=== PATIENT | male | born 1965 | race Hispanic/Latino ===

== ENCOUNTER 2018-03-25 09:27 | Emergency (ER) | payer MEDICARE, OTHER ==
[~2018-03-25] VITALS: Ht 165.1 cm; Wt 79.0 kg
[~2018-03-25 09:27] MED LIST: DILANTIN100 MG PO; NEURONTIN400 MG PO; SYNTHROID175 MCG PO; TEGRETOL200 MG PO; THIORIDAZINE OR; VISTARIL50 MG PO
[2018-03-25] MEDS ORDERED: TRAZODONE50 MG PO (09:40)
[2018-03-25] MEDS ORDERED: KEPPRA XR500 MG PO (09:40)
[2018-03-25 10:13] LABS: HEMATOCRIT 35.2 % (39.0-50.0); HEMOGLOBIN 11.4 g/dl (14.0-18.0); IMMATURE GRANULOCYTES 0.4 % (0.0-5.0); MEAN CORPUSCULAR HGB 26.9 pG CALC (26.0-32.0); MEAN CORPUSCULAR HGB CONC 32.4 g/L CALC (32.0-36.0); NEUT# 3.84 thou/uL (1.82-7.42); RED BLOOD COUNT 4.24 mill/uL (4.70-6.10); RED CELL DISTRI WIDTH 11.9 % (11.5-15.5)
[2018-03-25 10:33] LABS: ALBUMIN 4.2 g/dL (3.2-5.0); ALKALINE PHOSPHATASE 87 u/l (38-126); ANION GAP 15 (6-22 (CALC)); BILIRUBIN, TOTAL 0.3 mg/dL (0.0-1.4); BUN 18 mg/dL (9-20); BUN/CREATININE RATIO 20 (12-20 (CALC)); CARBON DIOXIDE 27 mmol/l (22-30); CHLORIDE 104 mmol/l (95-108); CREATININE 0.9 mg/dL (0.7-1.3); GFR > 60 ML/MIN (>=60 (CALC)); GFR FOR AFR.AMER. > 60 ML/MIN (>=60 (CALC)); POTASSIUM 3.9 mmol/l (3.5-5.1); SGOT/AST 27 u/l (17-59); SGPT/ALT 24 u/l (21-72); SODIUM 142 mmol/l (137-146); TOTAL PROTEIN 7.8 g/dL (6.3-8.2)
[2018-03-25 10:45] LABS: MYOGLOBIN 28 ng/mL (0 - 121)
[2018-03-25 11:25] LABS: URINE BILIRUBIN - DIPSTICK NEGATIVE (NEGATIVE); URINE BLOOD DIPSTICK NEGATIVE (NEGATIVE); URINE CLARITY CLEAR; URINE COLOR YELLOW; URINE GLUCOSE - DIPSTICK NEGATIVE (NEGATIVE); URINE KETONE NEGATIVE (NEGATIVE); URINE LEUK ESTERASE NEGATIVE (NEGATIVE); URINE NITRITE - DIPSTICK NEGATIVE (Negative); URINE PROTEIN - DIPSTICK NEGATIVE (NEG-TRACE); URINE SPECIFIC GRAVITY 1.015; URINE UROBILINOGEN - DIPSTICK 0.2 E.U./dL (0.2)
[2018-03-25 11:52] LABS: INFLUENZA A NONE DETECTED (NONE DETECT); INFLUENZA B NONE DETECTED (NONE DETECT)
[2018-03-25 14:43] VITALS: BP 141/72
== END 2018-03-25 14:55 | disposition home or self-care (01) ==
LOC: ED 09:27
PROVIDERS: Emergency Medicine
DX: R07.89 Other chest pain (principal); F79 Unspecified intellectual disabilities; R00.0 Tachycardia, unspecified

== ENCOUNTER 2018-11-10 10:25 | Emergency (ER) | payer MEDICARE, OTHER ==
[~2018-11-10] VITALS: Ht 165.1 cm; Wt 79.5 kg
[~2018-11-10 10:25] MED LIST changes: +KEPPRA XR500 MG PO; +TRAZODONE50 MG PO
[2018-11-10] MEDS ORDERED: TEGRETOL200 MG PO (10:40)
[2018-11-10] MEDS ORDERED: VITAMIN D32000 UNI2 PO (10:43)
[2018-11-10 10:51] LABS: HEMATOCRIT 34.5 % (39.0-50.0); HEMOGLOBIN 11.3 g/dl (14.0-18.0); IMMATURE GRANULOCYTES 0.9 % (0.0-5.0); MEAN CELL VOLUME 82.3 fL CALC (80.0-100.0); MEAN CORPUSCULAR HGB CONC 32.8 g/L CALC (32.0-36.0); NEUT# 19.39 thou/uL (1.82-7.42); RED BLOOD COUNT 4.19 mill/uL (4.70-6.10); RED CELL DISTRI WIDTH 12.1 % (11.5-15.5)
[2018-11-10 11:00] LABS: ALBUMIN 4.5 g/dL (3.2-5.0); ALKALINE PHOSPHATASE 93 u/l (38-126); ANION GAP 16 (6-22 (CALC)); BILIRUBIN, TOTAL 0.6 mg/dL (0.0-1.4); BUN 18 mg/dL (9-20); BUN/CREATININE RATIO 19 (12-20 (CALC)); CARBON DIOXIDE 23 mmol/l (22-30); CHLORIDE 101 mmol/l (95-108); CREATININE 0.9 mg/dL (0.7-1.3); GFR > 60 ML/MIN (>=60 (CALC)); GFR FOR AFR.AMER. > 60 ML/MIN (>=60 (CALC)); POTASSIUM 3.8 mmol/l (3.5-5.1); SGOT/AST 22 u/l (17-59); SODIUM 135 mmol/l (137-146); TOTAL PROTEIN 8.1 g/dL (6.3-8.2)
[2018-11-10 12:15] LABS: URINE BILIRUBIN - DIPSTICK NEGATIVE (NEGATIVE); URINE BLOOD DIPSTICK SMALL (NEGATIVE); URINE COLOR YELLOW; URINE GLUCOSE - DIPSTICK NEGATIVE (NEGATIVE); URINE KETONE TRACE mg/dL (NEGATIVE); URINE NITRITE - DIPSTICK NEGATIVE (Negative); URINE PROTEIN - DIPSTICK TRACE mg/dL (NEG-TRACE); URINE SPECIFIC GRAVITY 1.025; URINE UROBILINOGEN - DIPSTICK 0.2 E.U./dL (0.2)
[2018-11-10 12:16] LABS: URINE LEUK ESTERASE SMALL (NEGATIVE)
[2018-11-10 12:33] LABS: URINE RBC 25-50 RBC/hpf (0-5)
[2018-11-10 12:34] LABS: URINE BACTERIA FEW hpf; URINE SQUAMOUS EPITHELIAL CELL FEW EPI/hpf (0-FEW); URINE WBC 20-50 WBC/hpf (0-5)
[2018-11-10] MEDS ORDERED: KEFLEX500 M1 PO (12:36)
[2018-11-10 12:38] VITALS: BP 139/77
== END 2018-11-10 12:40 | disposition home or self-care (01) ==
LOC: ED 10:25
PROVIDERS: Emergency Medicine
DX: R41.82 Altered mental status, unspecified (principal); R56.9 Unspecified convulsions

== ENCOUNTER 2019-12-29 16:52 | Emergency (ER) | payer MEDICARE, OTHER ==
[~2019-12-29] VITALS: Ht 165.1 cm; Wt 70.0 kg
[~2019-12-29 16:52] MED LIST changes: +KEFLEX500 M1 PO; +VITAMIN D32000 UNI2 PO
[2019-12-29 17:47] LABS: HEMATOCRIT 33.8 % (39.0-50.0); HEMOGLOBIN 11.1 g/dl (14.0-18.0); IMMATURE GRANULOCYTES 0.1 % (0.0-5.0); MEAN CELL VOLUME 80.1 fL CALC (80.0-100.0); MEAN CORPUSCULAR HGB 26.3 pG CALC (26.0-32.0); MEAN CORPUSCULAR HGB CONC 32.8 g/dL CAL (32.0-36.0); NEUT# 5.33 thou/uL (1.82-7.42); RED BLOOD COUNT 4.22 mill/uL (4.70-6.10)
[2019-12-29 18:17] LABS: URINE BILIRUBIN - DIPSTICK NEGATIVE (NEGATIVE); URINE BLOOD DIPSTICK NEGATIVE (NEGATIVE); URINE COLOR YELLOW; URINE GLUCOSE - DIPSTICK NEGATIVE (NEGATIVE); URINE KETONE TRACE mg/dL (NEGATIVE); URINE LEUK ESTERASE NEGATIVE (NEGATIVE); URINE NITRITE - DIPSTICK NEGATIVE (Negative); URINE PROTEIN - DIPSTICK NEGATIVE (NEG-TRACE); URINE SPECIFIC GRAVITY 1.025; URINE UROBILINOGEN - DIPSTICK 0.2 E.U./dL (0.2)
[2019-12-29] MEDS ORDERED: CARBAMAZEPIN200 MG PO ×2 (18:36→18:49)
[2019-12-29 18:39] LABS: ALBUMIN 4.4 g/dL (3.2-5.0); ALKALINE PHOSPHATASE 90 u/l (38-126); ANION GAP 13 (6-22 (CALC)); BILIRUBIN, TOTAL 0.5 mg/dL (0.0-1.4); BUN 21 mg/dL (9-20); BUN/CREATININE RATIO 27 (12-20 (CALC)); CARBON DIOXIDE 25 mmol/l (22-30); CHLORIDE 101 mmol/l (95-108); CREATININE 0.8 mg/dL (0.7-1.3); GFR > 60 ML/MIN (>=60 (CALC)); GFR FOR AFR.AMER. > 60 ML/MIN (>=60 (CALC)); SODIUM 136 mmol/l (137-146); TOTAL PROTEIN 7.8 g/dL (6.3-8.2)
[2019-12-29 18:40] LABS: SGOT/AST 48 u/l (17-59)
[2019-12-29 18:45] LABS: C-REACTIVE PROTEIN 6.4 mg/dL (0-0.9)
[2019-12-29] MEDS ORDERED: DITROPAN5 MG/TA1 PO (18:52)
[2019-12-29] MEDS ORDERED: TAMSULOSIN HCL0.4 MG PO (18:52)
[2019-12-29 18:56] LABS: MYOGLOBIN 202 ng/mL (0 - 121)
[2019-12-29 21:30] VITALS: BP 151/91
== END 2019-12-29 21:30 | disposition home or self-care (01) ==
LOC: ED 16:52
PROVIDERS: Emergency Medicine
DX: U07.1 COVID-19 (principal); I10 Essential (primary) hypertension; F79 Unspecified intellectual disabilities
CPT/HCPCS: Q9967

== ENCOUNTER 2019-12-31 09:19 | Inpatient (IN) | payer MEDICARE, OTHER ==
[~2019-12-31] VITALS: Ht 175.3 cm; Wt 81.6 kg
[2019-12-31] VITALS (7 sets, daily range): BP systolic 99–136; BP diastolic 54–77
[~2019-12-31 09:19] MED LIST changes: +CARBAMAZEPIN200 MG PO; +DITROPAN5 MG/TA1 PO; +TAMSULOSIN HCL0.4 MG PO
--- NOTE | 2019-12-31 09:24 | NUR ---
PT TO ROOM VIA WC
--- NOTE | 2019-12-31 10:24 | NUR ---
PT IS RESTING COMFORTABLY. NO DISTRESS NOTED
[2019-12-31 10:58] LABS: HEMATOCRIT 31.4 % (39.0-50.0); HEMOGLOBIN 9.9 g/dl (14.0-18.0); IMMATURE GRANULOCYTES 0.4 % (0.0-5.0); MEAN CELL VOLUME 82.2 fL CALC (80.0-100.0); MEAN CORPUSCULAR HGB 25.9 pG CALC (26.0-32.0); MEAN CORPUSCULAR HGB CONC 31.5 g/dL CAL (32.0-36.0); NEUT# 3.67 thou/uL (1.82-7.42); RED BLOOD COUNT 3.82 mill/uL (4.70-6.10); RED CELL DISTRI WIDTH 12.4 % (11.5-15.5)
[2019-12-31 11:11] LABS: ALBUMIN 3.9 g/dL (3.2-5.0); ALKALINE PHOSPHATASE 86 u/l (38-126); ANION GAP 11 (6-22 (CALC)); BILIRUBIN, TOTAL 0.3 mg/dL (0.0-1.4); BUN 14 mg/dL (9-20); BUN/CREATININE RATIO 18 (12-20 (CALC)); CARBON DIOXIDE 29 mmol/l (22-30); CHLORIDE 103 mmol/l (95-108); CREATININE 0.8 mg/dL (0.7-1.3); GFR > 60 ML/MIN (>=60 (CALC)); GFR FOR AFR.AMER. > 60 ML/MIN (>=60 (CALC)); POTASSIUM 3.4 mmol/l (3.5-5.1); SGOT/AST 53 u/l (17-59); SODIUM 139 mmol/l (137-146); TOTAL PROTEIN 7.3 g/dL (6.3-8.2)
[2019-12-31 11:23] LABS: MYOGLOBIN 68 ng/mL (0 - 121)
--- NOTE | 2019-12-31 11:24 | NUR ---
PT IS RESTING ON STRETCHER
--- NOTE | 2019-12-31 12:16 | NUR ---
PT IS RESTING ON STRTCHER NO DISTRESS NOTED
--- NOTE | 2019-12-31 13:08 | NUR ---
patient is resting on the stretcher. no distress noted -
--- NOTE | 2019-12-31 14:08 | NUR ---
PATIENT AND SISTER ARE AWARE OF ADMISSION. AWAITING BED ASSIGNMENT. NO DISTRESS NOTED.
--- NOTE | 2019-12-31 14:49 | NUR ---
PATIENT IS RESTIN COMFORTABLY
--- NOTE | 2019-12-31 15:32 | NUR ---
Admission Note Report Given to: JOHN OBREGON Transported by: Wheelchair X Stretcher Transported with: X Nurse Transporter X Patent IV X O2 X Curator Of Collections Location: X ICU MS2
--- NOTE | 2019-12-31 16:29 | NUR ---
PT ARRIVES TO ROOM 8 IN ICU, SEEN AWAKE, ALERT, ORIENTED TO SELF ONLY PER MENTAL CHALLENGE. LUNGS ARE DIMINISHED, CRACKLES TO BASES, USES 3 LPM NC. PT COOPERATIVE WITH ASSESSMENT, ATTEMPTS TO COMMUNICATE. SISTER NATALIYA WAS ALLOWED IN ROOM FOR SHORT TIME, HELPED WITH INITIAL ASSESSMENT INFORMATION.
--- NOTE | 2019-12-31 19:00 | NUR ---
RECEIVED REPORT FROM AM NURSE. PATIENT RESTING IN BED. PATIENT DOES NOT APPEAR TO BE IN ANY DISTRESS. VITALS STABLE. WILL CONTINUE TO MONITOR.
--- NOTE | 2019-12-31 20:00 | NUR ---
ASSESSMENT COMPLETED. PATIENT AMBULATED TO BATHROOM. PATIENT ONLY ALERT TO SELF. PATIENT HELPED BACK TO BED. PATIENT WITH NO COMPLAINTS OF PAIN OR DISCOMFORT. VITALS STABLE. PATIENT WITH NO SIGNS OF PAIN OR DISCOMFORT. WILL CONTINUE TO MONITOR.
--- NOTE | 2019-12-31 22:00 | NUR ---
PATIENT GIVEN PM MED. PATIENT WITH NO QUESTIONS. PATIENT RESTING IN BED. PATIENT WITH NO COMPLAINTS. VITAL STABLE. WILL CONTINUE TO MONITOR.
[2020-01-01] VITALS (17 sets, daily range): BP systolic 98–146; BP diastolic 56–85
--- NOTE | 2020-01-01 | NUR ---
PATIENT AWAKE. PATIENT WAS OFFERED ASSISTANCE TO BATHROOM, PATIENT DENIES NEED FOR BATHROOM. PATIENT WITH NO COMPLAINTS. VITALS STABLE. WILL CONTINUE TO MONITOR.
--- NOTE | 2020-01-01 02:41 | NUR ---
PATIENT SLEEPING. PATIENT WITH NO SIGNS OF PAIN OR DISCOMFORT. WILL CONTINUE TO MONITOR
--- NOTE | 2020-01-01 04:00 | NUR ---
PATIENT RESTING IN BED. PATIENT WITH NO COMPLAINTS. VITALS STABLE.
--- NOTE | 2020-01-01 06:00 | NUR ---
PATIENT AMBULATED TO BATHROOM. PATIENT WITH NO COMPLAINTS. VITALS STABLE. WILL CONTINUE TO MONITOR PATIENT.
--- NOTE | 2020-01-01 07:40 | NUR ---
pt resting in bed with eyes closed; easily arousable; no verbal with this brief writer; ATT Lang Line Be used; ID [id number]; assessment completed at this time; pt alert to person; speech unintelligible/ hestitant with shore working supervisor; plan of care/ meds/ lab draw explained; resp even and unlabored; lungs clear/ rhonchi bases; skin color wnl; o2 per nc; resource agent cough noted; hr reg; strong pulses; no edema noted; sr on monitor; bilat knee high awa hose intact; abd soft with bs present; no bm noted per brief writer; no urine to inspect at this time; #20 to rac/ #20 to lac flushed and patent; no redness or edema noted at sites; am labs obtained; call light within reach; will continue to monitor
--- NOTE | 2020-01-01 08:02 | NUR ---
06/29 BOTTLES BLOOD CX SHOW GRAM POSITIVE COCCI. GIVE 1X DOSE OF VANCOMYCIN PER DR FOSTER
--- NOTE | 2020-01-01 08:09 | NUR ---
awake in bed eating breakfast; no apparent distress noted; pt offers no complaints; sr on monitor; iv's intact; call light within reach; will continue to monitor
[2020-01-01 08:16] LABS: HEMATOCRIT 32.7 % (39.0-50.0); HEMOGLOBIN 10.4 g/dl (14.0-18.0); IMMATURE GRANULOCYTES 0.3 % (0.0-5.0); MEAN CELL VOLUME 82.2 fL CALC (80.0-100.0); MEAN CORPUSCULAR HGB 26.1 pG CALC (26.0-32.0); MEAN CORPUSCULAR HGB CONC 31.8 g/dL CAL (32.0-36.0); NEUT# 4.81 thou/uL (1.82-7.42); RED BLOOD COUNT 3.98 mill/uL (4.70-6.10); RED CELL DISTRI WIDTH 12.3 % (11.5-15.5)
[2020-01-01 09:13] LABS: ALBUMIN 3.6 g/dL (3.2-5.0); ALKALINE PHOSPHATASE 96 u/l (38-126); ANION GAP 10 (6-22 (CALC)); BILIRUBIN, TOTAL 0.3 mg/dL (0.0-1.4); BUN 16 mg/dL (9-20); BUN/CREATININE RATIO 23 (12-20 (CALC)); CARBON DIOXIDE 27 mmol/l (22-30); CHLORIDE 105 mmol/l (95-108); CREATININE 0.7 mg/dL (0.7-1.3); GFR > 60 ML/MIN (>=60 (CALC)); GFR FOR AFR.AMER. > 60 ML/MIN (>=60 (CALC)); POTASSIUM 3.6 mmol/l (3.5-5.1); SGOT/AST 52 u/l (17-59); SODIUM 138 mmol/l (137-146); TOTAL PROTEIN 6.6 g/dL (6.3-8.2)
[2020-01-01 09:24] LABS: C-REACTIVE PROTEIN 24.9 mg/dL (0-0.9)
--- NOTE | 2020-01-01 09:25 | NUR ---
Dr Matthew present at bedside to assess pt
--- NOTE | 2020-01-01 10:05 | NUR ---
pt awake in bed watching tv; no apparent distress noted; iv intact and patent; abt infusing without complication; sr on monitor; call light within reach; will continue to monitor
--- NOTE | 2020-01-01 10:54 | NUR ---
personal caregiver Sherita Nice called this appeals writer; update provided; Sherita informed of non folrmulary medication that needs to brought in
--- NOTE | 2020-01-01 12:00 | NUR ---
awake in bed; assist to sit on side of bed for lunch; no apparent distress noted; speech garbled/ incomprehensible; iv intact and patent; o2 per nc; sr on monitor; call light within reach; will continue to monitor
--- NOTE | 2020-01-01 13:32 | NUR ---
home medication received; pharmacy notified
--- NOTE | 2020-01-01 14:03 | NUR ---
awake in bed; no apparent distress noted; o2 per nc; iv intact; sr on monitor; call light within reach; will continue to monitor
--- NOTE | 2020-01-01 14:32 | NUR ---
pt awake in bed; points at arm; monitoring attachments explained; iv flushed and patent; sr on monitor; mortgage or loan underwriter/staff unable to articulate speech; speech garbled; family Sherita called per mortgage or loan underwriter; information provided; pt continues to remove o2 nc; reapplied; o2 sat 84%; o2 titrated to 4L with current of sat of 88-90%; plan of care explained to pt per family; will continue to monitor
--- NOTE | 2020-01-01 15:55 | NUR ---
RT at bedside; pt converted to 6L high kassandra NC; o2 sat 92%; will continue to monitor closely
--- NOTE | 2020-01-01 16:06 | NUR ---
pt resting in bed with eyes closed; no apparent distress noted; ivs intact; sr on monitor; o2 per nc; call light within reach; will continue to monitor
--- NOTE | 2020-01-01 17:53 | NUR ---
awake in bed eating dinner; no apparent distress noted; sr on monitor; iv intact; o2 per nc; call light within reach;
--- NOTE | 2020-01-01 20:00 | NUR ---
PT RESTING IN BED, NO SIGNS OF DISTRESS NOTED, RESP EVEN AND UNLABORED. PT ALERT TO PERSON UNABLE TO STATE . PT REQUIRES REDIRECTION ATTEMPTED TO TEACH PT TO USE CALL LIGHT, PT UNABLE TO DEMONSTRATE USE. DISCUSSED POC, NEEDS REINFORCMENT. ASSESSMENT COMPLETED, RESP EVEN AND UNLABORED. PT MEDICATED PER MAR. SKIN INTACT, NO EDEMA. 02 6L NC HI FLOW. TEDS IN PLACE. CALL LIGHT IN REACH,CONTINUE TO MONITOR.
[2020-01-02] VITALS (13 sets, daily range): BP systolic 118–153; BP diastolic 66–115
--- NOTE | 2020-01-02 | NUR ---
PT RESTING IN BED, WITH EYES CLOSED, NO SIGNS OF DISTRESS NOTED, RESP EVEN AND UNLABORED. VSS, BED ALARM FOR SAFETY, CALL LIGHT IN REACH,CONTINUE TO MONITOR.
--- NOTE | 2020-01-02 04:00 | NUR ---
PT RESTING IN BED WITH EYES CLOSED, NO SIGNS OF DISTRESS NOTED, RESP EVEN AND UNLABORED. CALL LIGHT IN REACH, BED ALARM FOR SAFETY, CONTINUE TO MONITOR.
--- NOTE | 2020-01-02 04:50 | NUR ---
PT RESTING IN BED, PT INCONTINENT OF URINE. ASSISTED PT TO BSC. PT HAD A SMALL BM, NEW LINENS AND GOWN PROVIDED. PT VERY SOB ON EXERTION. ASSISTED PT BACK TO BED. 02 NC @ 8L 90%, INCREASED TO 9L NC SPO2 INCREASED TO 92%. PT MEDICATED PER AUG. CALL LIGHT IN REACH, BED ALARM FOR SAFETY, CONTINUE TO MONITOR.
--- NOTE | 2020-01-02 07:50 | NUR ---
pt awake in bed; no apparent distress noted; assessment completed at this time; ATT Land Line utilized; Rush ID # [id number] pt non verbal with this account underwriter and boat buffer plastic; plan of care explained; pt alert to name; looks at account underwriter when name is called; no s/sx of pain noted; no n/v noted; resp tachypneic; lungs clear/ rhonchi bases; skin color wnl; o2 per nc at 9L; assistance representative cough noted; hr reg; strong pulses; no edema noted; sr-st on monitor; abd soft with bs present; no bm noted per account underwriter; no urine to inspect at this time; #20 flushed and patent to lac and rac; no redness or edema noted rt site; bed alarm activated for pt safety; call light within reach; will continue to monitor
--- NOTE | 2020-01-02 08:05 | NUR ---
awake in bed eating breakfast; no apparent distress noted; iv intact; o2 per nc; st on monitor; call light within reach; will continue to monitor
--- NOTE | 2020-01-02 09:03 | NUR ---
family Sherita Nice called card writer hand as per Dr Matthew request; speaking with Sherita
--- NOTE | 2020-01-02 10:00 | NUR ---
awake in bed; medicated with tylenol; pt tachypneic rate 28-30; Dr Matthew on unit and notified; sr on monitor; o2 per nc at 9L with o2 sat at 98%; call light within reach; will continue to monitor
--- NOTE | 2020-01-02 10:35 | NUR ---
Dr Matthew present at bedside to assess pt
--- NOTE | 2020-01-02 12:03 | NUR ---
awake in bed; staff at bedside to attempt tp feed pt; pt will not eat; resp 36; o2 per nc hi kassandra at 9L; o2 sat 98%; iv's intact; sr on monitor; bed alarm activated for pt safety; call light within reach
--- NOTE | 2020-01-02 12:45 | NUR ---
Dr Matthew updated per this writer technical publications on pt condition; informed of pts inabilty to feed self, non verbal with staff, not taking po fluids/food well; no orders received
--- NOTE | 2020-01-02 13:55 | NUR ---
awake in bed; staff at bedside for complete bed bath; iv's intact; sr on monitor; o2 per nc at 9L; call light within reach; will continue to monitor
--- NOTE | 2020-01-02 14:55 | NUR ---
awake in bed; pt with converse with this web content writer for brief a moment; sr on monitor; iv flushed and patent; no redness or edema noted at site; call light within reach; will continue to monitor
--- NOTE | 2020-01-02 16:10 | NUR ---
resting in bed with eyes closed; no apparent distress noted; easily arousable to verbal stimuli; iv intact and patent; sr on monitor; o2 per nc; orange juice offered and declined; bed alarm activated for pt safety; will continue to monitor
--- NOTE | 2020-01-02 18:07 | NUR ---
awake in bed; o2 per nc at 9L; staff at bedside attempting to feed pt; per Sherita, pt likes applesauce; ivs intact; bed alarm activated; call light within reach
--- NOTE | 2020-01-02 18:31 | NUR ---
staff attempted to feed pt; pt noted holding food in his mouth; was able to take small amount of po fluids;
--- NOTE | 2020-01-02 19:20 | NUR ---
awakens easily. appears generally weak. tachypneic. resps 36, shallow & nonlabored. no apparent resp diff. galley hand shows sinus rhythm hr 82. #20 rac & lac saline locks. no po intake @ present. dry diaper in place. fall air/contact precautions cont.
--- NOTE | 2020-01-02 22:00 | NUR ---
eyes closed. no apparent distress. resps cont rapid & shallow.
--- NOTE | 2020-01-02 23:00 | NUR ---
sao2 88%. o2 increased to 10 l/m high flow. cannula repositioned. sao2 increased to 96%.
[2020-01-03] VITALS (12 sets, daily range): BP systolic 135–157; BP diastolic 64–84
--- NOTE | 2020-01-03 00:01 | NUR ---
eyes closed. no distress. bus driver/monitor shows sinus rhythm hr 84.
--- NOTE | 2020-01-03 02:00 | NUR ---
hob remains elevated. resps rapid & shallow. o2 conts. monitoring engineer shows sinus rhythm hr 90
--- NOTE | 2020-01-03 04:30 | NUR ---
incont of urine. pt cleansed & linen changed.
--- NOTE | 2020-01-03 05:40 | NUR ---
lab here. blood drawn.
--- NOTE | 2020-01-03 05:51 | NUR ---
resps remain rapid & shallow. nad. o2 cont.
--- NOTE | 2020-01-03 06:50 | NUR ---
RECVD REPORT FROM LOY ALONSO @START OF SHIFT.
--- NOTE | 2020-01-03 07:23 | NUR ---
PT OBSERVED SLEEPING IN BED, NO S/S OF DISTRESS. WILL ENTER ROOM WITH BREAKFAST.
--- NOTE | 2020-01-03 08:08 | NUR ---
ENTERED ROOM TO DELIVER BREAKFAST. PT JUST STARES AT THIS RN BUT DOES NOT SPEAK WHEN SPOKEN TO IN MAURITANIAN OR MACEDONIAN. PT FOLLOWS STAFF WITH EYES/HEAD. BREAKFAST PLACED IN FRONT OF PT BUT PT MAKED NO ATTEMPT TO EAT/DRINK.
[2020-01-03 08:10] LABS: BASO% 0 % (0-3); EOS% 0 % (0-8); HEMATOCRIT 31.2 % (39.0-50.0); HEMOGLOBIN 9.9 g/dl (14.0-18.0); IMMATURE GRANULOCYTES 0.1 % (0.0-5.0); LYMPH% 16 % (15-41); MEAN CORPUSCULAR HGB 25.7 pG CALC (26.0-32.0); MEAN CORPUSCULAR HGB CONC 31.7 g/dL CAL (32.0-36.0); MONO% 11 % (2-13); NEUT# 5.19 thou/uL (1.82-7.42); NEUT% 73 % (42-76); PLATELET COUNT 324 thou/uL (130-400); RED BLOOD COUNT 3.85 mill/uL (4.70-6.10); RED CELL DISTRI WIDTH 12.1 % (11.5-15.5)
[2020-01-03 08:32] LABS: ALBUMIN 3.5 g/dL (3.2-5.0); ALKALINE PHOSPHATASE 99 u/l (38-126); ANION GAP 11 (6-22 (CALC)); BUN 16 mg/dL (9-20); BUN/CREATININE RATIO 27 (12-20 (CALC)); CARBON DIOXIDE 26 mmol/l (22-30); CHLORIDE 107 mmol/l (95-108); CREATININE 0.6 mg/dL (0.7-1.3); GFR > 60 ML/MIN (>=60 (CALC)); GFR FOR AFR.AMER. > 60 ML/MIN (>=60 (CALC)); POTASSIUM 3.5 mmol/l (3.5-5.1); SGOT/AST 52 u/l (17-59); SODIUM 141 mmol/l (137-146); TOTAL PROTEIN 6.3 g/dL (6.3-8.2)
[2020-01-03 08:50] LABS: BILIRUBIN, TOTAL 0.7 mg/dL (0.0-1.4); C-REACTIVE PROTEIN 26.7 mg/dL (0-0.9)
--- NOTE | 2020-01-03 11:03 | NUR ---
PT SISTER, NATALIYA MARVIN, , CALLED FOR UPDATE WITH CODE. SISTER AWARE OF POSSIBLE INTUBATION.
--- NOTE | 2020-01-03 11:52 | NUR ---
TEGRETOL GIVEN WITH JELLO. AM MEDS GIVEN WITH APPLESAUCE. PT POCKETING JELLO+MEDS. WATCHED UNTIL PT SWALLOWED. PT REMIANS TACHYPENIC & NONVERBAL.
--- NOTE | 2020-01-03 13:10 | NUR ---
INFECTIOUS DISEASE CONSULT PLACED.
--- NOTE | 2020-01-03 13:39 | NUR ---
MD CONSULTED ON PTS CONTINUED TACYPENIA & SHALLOW BREATHING. FAXED [facility] FOR [facility].
--- NOTE | 2020-01-03 14:00 | NUR ---
#16 CATH MADRID STARTED USING STERILE PROCEDURE. MINIMAL OUTPUT; DARK YELLOW URINE. RN MDS UPPER RIGHT THIGH.
--- NOTE | 2020-01-03 16:56 | NUR ---
DISCUSSED PTS INCREASED LABORED BREATHING; BELLY BREATHING. RBVTO FOR ABG.
--- NOTE | 2020-01-03 19:30 | NUR ---
poorly responsive. general weakness cont. resps remains rapid & shallow. o2 cont per 12.5 l/m nc. vehicle monitor technician shows sinus rhythm hr 90. #20 rac saline lock. petersen cath in place. urine clear yellow. turned & repositioned.
--- NOTE | 2020-01-03 22:00 | NUR ---
resps remain rapid & shallow. o2 cont. record tester shows sinus rhythm hr 80.
--- NOTE | 2020-01-03 23:00 | NUR ---
dr clay called this expert medical writer. update given.
[2020-01-04] VITALS (21 sets, daily range): BP systolic 96–182; BP diastolic 58–90
--- NOTE | 2020-01-04 00:15 | NUR ---
[id number] incont of liquid stool. while providing personal hygiene it was noted that pts foreskin was pulled back-glans exposed, unable to reduce. ice bag applied. increased tachypnea, sao2 84%. rt notified for abgs-results rec'd. o2 changed to 15 l/m nrb. sao2 increased to 97%.
--- NOTE | 2020-01-04 03:30 | NUR ---
milagros pabon here. foreskin reduced. ice bag reapplied.
--- NOTE | 2020-01-04 04:15 | NUR ---
jovanny ngo rn attempted x2 for new iv restart without success.
--- NOTE | 2020-01-04 04:30 | NUR ---
blood drawan & sent to lab.
[2020-01-04 04:51] LABS: HEMATOCRIT 34.3 % (39.0-50.0); HEMOGLOBIN 10.7 g/dl (14.0-18.0); MEAN CELL VOLUME 83.9 fL CALC (80.0-100.0); MEAN CORPUSCULAR HGB 26.2 pG CALC (26.0-32.0); MEAN CORPUSCULAR HGB CONC 31.2 g/dL CAL (32.0-36.0); RED BLOOD COUNT 4.09 mill/uL (4.70-6.10); RED CELL DISTRI WIDTH 12.4 % (11.5-15.5)
[2020-01-04 05:07] LABS: ALBUMIN 3.4 g/dL (3.2-5.0); ALKALINE PHOSPHATASE 94 u/l (38-126); ANION GAP 16 (6-22 (CALC)); BILIRUBIN, TOTAL 0.8 mg/dL (0.0-1.4); BUN 17 mg/dL (9-20); BUN/CREATININE RATIO 32 (12-20 (CALC)); CARBON DIOXIDE 23 mmol/l (22-30); CHLORIDE 109 mmol/l (95-108); CREATININE 0.5 mg/dL (0.7-1.3); GFR > 60 ML/MIN (>=60 (CALC)); GFR FOR AFR.AMER. > 60 ML/MIN (>=60 (CALC)); POTASSIUM 3.4 mmol/l (3.5-5.1); SGOT/AST 42 u/l (17-59); SODIUM 145 mmol/l (137-146); TOTAL PROTEIN 6.2 g/dL (6.3-8.2)
--- NOTE | 2020-01-04 06:00 | NUR ---
resps remain rapid & shallow. sao2 97%.
--- NOTE | 2020-01-04 08:50 | NUR ---
0850 1L NS STARTED 0859 20MG ETOMIDATE IV PUSHED BY DR BARBA 0859 100MG SUCCINYLCHOLINE IV PUSHED BY DR BARBA 0903 ETT ESTABLISHED SIZE 7.5, 25@LIP 0910 PROPOFOL DRIP STARTED; TITRATED UP TO 35 0910 OG INSERTED 0922 CENTRAL LINE RIGHT FEMORAL x3 ESTABLISHED BY DR BARBA 0902 PORTABLE CXR COMPLETED
--- NOTE | 2020-01-04 09:27 | NUR ---
INITITIATED TRANSFER WITH [facility]. MIKE WILL SPEAK WITH HER MANUAL ARTS THERAPIST TO SEE IF PT COULD BE TRANSFERED SINCE THEY ARE CURRENTLY HOLDING 9 PTS IN THEIR ER.
--- NOTE | 2020-01-04 09:37 | NUR ---
NOTIFIED SISTER, NATALIYA, OF INTUBATION.
--- NOTE | 2020-01-04 09:46 | NUR ---
FINAL BLOOD CULTURE RESULTS CALLED TO / VIALS GROWING STAPH EPIDERMIDIS. NO NEW ORDERS. PROBABLE CONTAMINANT.
--- NOTE | 2020-01-04 10:05 | NUR ---
RANDY FROM [facility] CALLED STATING THEY MIGHT HAVE A BED LATER TODAY. WILL HAVE MDS CONNECT.
--- NOTE | 2020-01-04 12:06 | NUR ---
PT REPOSITIONED IN BED, ORAL CARE COMPLETED, CHECKED FOR BM. CHEST RISING EVEN, BREATHING UNLABORED. VSS. WILL CONTINUE TO MONITOR.
--- NOTE | 2020-01-04 14:05 | NUR ---
PROP TITRATED UP TO 40MCG/KG/MIN D/T PT RR IN 30-40'S & PT RESTLESS.
--- NOTE | 2020-01-04 15:28 | NUR ---
RANDY CALLED FROM [facility]. PT ASSIGNED TO . CALL REPORT TO [phone]. DR NICOLAS ALCARAZ ACCEPTED.
--- NOTE | 2020-01-04 15:37 | NUR ---
[facility], WILL HAVE TRANSPORT CREW TO [facility] ETA 30 MINS.
--- NOTE | 2020-01-04 16:10 | NUR ---
PT PULLED TUBING OUT OF BIPAP AGAIN. RESTRAINTS READJUSTED & BIPAP TUBING MOVED TOWARD HEAD OF BED. PT SHAKING HEAD WHEN BIPAP HOSE RECONNECTED.
--- NOTE | 2020-01-04 16:50 | NUR ---
REPORT GIVEN TO MACARENA @[facility]
--- NOTE | 2020-01-04 16:53 | NUR ---
PT OUT THE DOOR WITH [facility], WITH ALL BELONGINGS, IN STABLE CONDITION. SISTER NOTIFIED OF TRANSFER.
== END 2020-01-04 16:53 | disposition short-term general hospital (02) | DRG 208 ==
LOC: ED 09:19 → ED-I 13:10 → ED 13:18 → ED-I 13:19 → ICU 13:19
PROVIDERS: Emergency Medicine; Nurse Practitioner Family; ADMIT Internal Medicine; ATTEND Internal Medicine
PROC: 0BH17EZ Insertion of Endotracheal Airway into Trachea, Via Natural or Artificial Opening (ICD-10-PCS; principal; 2020-01-04)
PROC: 5A1935Z Respiratory Ventilation, Less than 24 Consecutive Hours (ICD-10-PCS; 2020-01-04)
PROC: 06HY33Z Insertion of Infusion Device into Lower Vein, Percutaneous Approach (ICD-10-PCS; 2020-01-04)
DX: U07.1 COVID-19 (principal); J12.89 Other viral pneumonia; J96.01 Acute respiratory failure with hypoxia; I10 Essential (primary) hypertension; F79 Unspecified intellectual disabilities; F20.9 Schizophrenia, unspecified; G40.409 Other generalized epilepsy and epileptic syndromes, not intractable, without status epilepticus; N40.0 Benign prostatic hyperplasia without lower urinary tract symptoms; R10.84 Generalized abdominal pain; R50.9 Fever, unspecified
CPT/HCPCS: J1650; J2060; Q9967